=== PATIENT | female | born 1970 | race Caucasian/White ===

== ENCOUNTER → 2017-01-08 13:30 | Outpatient (CLI) | payer OTHER | END | disposition home or self-care (01) | LOC: D.MAMMO 08:00 | DX: Z12.31 Encounter for screening mammogram for malignant neoplasm of breast (principal) ==

== ENCOUNTER → 2017-02-04 16:22 | Outpatient (CLI) | payer OTHER | END | disposition home or self-care (01) | LOC: D.MAMMO 02-03 11:00 → D.US 02-03 13:00 → D.MAMMO 09:00 | DX: R92.8 Other abnormal and inconclusive findings on diagnostic imaging of breast (principal) ==

== ENCOUNTER → 2018-02-09 15:52 | Outpatient (CLI) | payer OTHER | END | disposition home or self-care (01) | LOC: D.MAMMO 09:15 | DX: Z12.31 Encounter for screening mammogram for malignant neoplasm of breast (principal) ==

== ENCOUNTER 2019-02-15 19:00 | Outpatient (CLI) | payer OTHER | END 2019-02-15 23:59 | disposition home or self-care (01) | LOC: D.MAMMO 19:00 | PROVIDERS: ATTEND Obstetrics & Gynecology | DX: Z12.31 Encounter for screening mammogram for malignant neoplasm of breast (principal) ==

== ENCOUNTER 2019-03-07 13:00 | Outpatient (CLI) | payer OTHER | END 2019-03-07 13:30 | disposition home or self-care (01) | LOC: D.MAMMO 13:00 | PROVIDERS: ATTEND Obstetrics & Gynecology | DX: R92.8 Other abnormal and inconclusive findings on diagnostic imaging of breast (principal) ==

== ENCOUNTER 2020-01-20 05:30 | Day surgery (SDC) | payer OTHER ==
[2020-01-18 11:06] LABS: ALBUMIN 3.6 g/dL (3.4-5.0); ALKALINE PHOSPHATASE 88 U/L (30-120); ALT (SGPT) 24 U/L (10-68); BILIRUBIN - TOTAL 0.36 mg/dL (0.2-1.3); CALC OSMOLALITY 272 mosm/kg (275-300); CALCIUM 9.2 mg/dL (8.5-10.1); CHLORIDE - SERUM 98 mmol/L (98-107); CREATININE - SERUM 0.7 mg/dL (0.6-1.3); GLUCOSE 92 mg/dL (74-106); POTASSIUM - SERUM 3.3 mmol/L (3.5-5.1); PROTEIN - SERUM 7.8 g/dL (6.4-8.2); SODIUM 136 mmol/L (136-145); UREA NITROGEN 15 mg/dL (7-18); eGFR NON AFRICAN AMERICAN > 90 mL/min (90-120)
[2020-01-18 11:09] LABS: BASOPHILS 0.2 % (0-2); EOSINOPHILS 1.5 % (0-7); HEMOGLOBIN 13.6 g/dL (12-16); IMMATURE GRANULOCYTES 0.1 % (0-5); LYMPHOCYTES 29.7 % (15-50); MCH 25.8 pg (26.0-34.0); MCHC 31.6 g/dL (31.0-37.0); MCV 81.6 fL (80.0-100.0); MEAN PLATELET VOLUME 10.4 fL (7.4-10.4); MONOCYTES 5.7 % (2-11); NEUTROPHILS 62.8 % (40-80); PLATELET COUNT 344 10x3/uL (130-400); RBC 5.27 10x6/uL (4.00-5.40); RDW 17.2 % (11.5-14.5); WBC 8.8 10x3/uL (4.8-10.8)
[~2020-01-20] VITALS: Ht 165.1 cm; Wt 110.2 kg
[~2020-01-20 05:30] MED LIST: HYDROCHLOROTHIA25 MG PO; LEVOXYL175 MCG PO; PEPCID AC20 MG PO
[2020-01-20] MEDS ORDERED: NAPROXEN250 MG PO (05:55)
[2020-01-20] MEDS ORDERED: MULTI-DAY VITAM1 TAB PO (05:56)
[2020-01-20] MEDS ORDERED: PROBIOTIC BLEN1 EACH (05:56)
[2020-01-20 05:57] LABS: HCG URINE NEGATIVE (NEGATIVE)
[2020-01-20 05:59] VITALS: BP 107/55; Ht 165.1 cm; Wt 110.2 kg
--- NOTE | 2020-01-20 13:08 | NUR ---
0924-S. DENIES PAIN. NO DISTRESS. TOLERATED JELLO AND WATER. VOIDED WITHOUT COMPLICATIONS. REMOVED IV WITH CATH INTACT, DISPOSED INTO SHARPS, COVERED WITH GUAZE, SECURED WITH MEDIPORE TAPE. REVIEWED POST OP INSTRUCTIONS. FOLLOW UP GIVEN TO PT PRIOR. VERBALIZED UNDERSTANDING.
--- NOTE | 2020-01-20 13:10 | NUR ---
0935-PT DRESSED. ESCORTED OUT VIA W/C BY STAFF WITH SPOUSE AWAITING TO DRIVE HOME.
--- NOTE | 2020-01-24 08:14 | OP ---
PATIENT NAME: JESÚS MEZA MEDICAL RECORD: [id number] :68 LOCATION:[facility] ADMISSION DATE: SURGEON: ABBY HIDALGO MD DATE OF OPERATION: 01/20/2020 PREOPERATIVE DIAGNOSIS: Persistent low-grade cervical dysplasia. POSTOPERATIVE DIAGNOSIS: Persistent low-grade cervical dysplasia. PROCEDURE: Loop electrosurgical excision procedure. SURGEON: Abby Hidalgo MD ANESTHESIA: General endotracheal. INTRAVENOUS FLUIDS: Per anesthesia record. SPECIMENS: Included cervical cone biopsies. FINDINGS: 1. Grossly normal-appearing external genitalia. 2. Grossly normal-appearing vagina and cervix. COMPLICATIONS: None apparent. DESCRIPTION OF PROCEDURE: The patient was taken to the operating room where general anesthesia was achieved without difficulty. The patient was prepped and draped in normal sterile fashion in the dorsal lithotomy position in the [facility]. The patient was prepped and draped and the bladder was drained of approximately 100 cc of clear yellow urine. At this point, an insulated speculum was placed into the vagina and cervix was identified. A 1 x 2 cm LEEP electrode was then used to excise a cervical cone biopsy to a depth of approximately 8-9 mm. Following removal of the cone specimen, the ball tip cautery was used to stop all bleeding as well as to fulgurate the margin of the cone biopsy. Hemostasis was noted and Monsel solution was placed on the surgical site. The speculum was removed. The patient tolerated the procedure well, transferred to postanesthesia recovery stable without incident. TRANSINT:[id number] Voice Confirmation ID: [id number] DOCUMENT ID: [id number] ABBY HIDALGO MD at 0814 CC: [id number] DICTATION DATE: 01/23/20 0502 AUTO ADJUDICATION SPECIALIST: 01/23/20 1353 [facility] 01/20/20 [place] [id number] [place] [id number]
== END 2020-01-20 09:35 | disposition home or self-care (01) ==
LOC: D.OPS 05:30 → D.PAN 07:30 → D.OPS 07:30
PROVIDERS: ATTEND Obstetrics & Gynecology
DX: R87.610 Atypical squamous cells of undetermined significance on cytologic smear of cervix (ASC-US) (principal)

== ENCOUNTER 2020-02-21 09:00 | Outpatient (CLI) | payer OTHER ==
[2020-01-20 05:59] VITALS: BMI 40.5
[~2020-02-21 09:00] MED LIST changes: +MULTI-DAY VITAM1 TAB PO; +NAPROXEN250 MG PO; +PROBIOTIC BLEN1 EACH
== END 2020-02-21 10:00 | disposition home or self-care (01) ==
LOC: D.MAMMO 09:00
PROVIDERS: ATTEND Obstetrics & Gynecology
DX: Z12.31 Encounter for screening mammogram for malignant neoplasm of breast (principal)